=== PATIENT | male | born 1965 | race Caucasian/White ===

== ENCOUNTER 2017-01-21 08:38 | Day surgery (SDC) | payer BC ==
[2017-01-19 09:19] LABS: HEMATOCRIT 45.5 % (37.9-51.0); HEMOGLOBIN 14.5 g/dL (13.5-17.0); MEAN CORPUSCULAR HEMOGLOBIN 27.7 pg (27.0-33.4); MEAN CORPUSCULAR HGB CONC 31.8 g/dL (32.0-36.0); MEAN CORPUSCULAR VOLUME 87 fl (80-97); RED BLOOD COUNT 5.24 10^6/uL (4.35-5.55); WHITE BLOOD COUNT 11.3 10^3/uL (4.0-10.5)
--- NOTE | 2017-01-19 13:13 | EKG REPORT ---
SEVERITY:- NORMAL ECG - SINUS RHYTHM : Confirmed by: Jose Lynn MD 19-Jan-2017 13:12:50
[~2017-01-21 08:38] MED LIST: CEFAZOLIN 1 GM/D5W RTU 1 GM/50 ML RTUPB IV PRN; LIDOCAINE 0.5% INJ-PF (5 MG/ML) 50 ML SDV SUBCUT PRN; RINGERS SOLUTION,LACTATED 1,000 ML IV PRN
[2017-01-21] MEDS ORDERED: LIDOCAINE 1% INJ-PF (10 MG/ML) 30 ML SDV ONE (08:46)
[2017-01-21] MEDS ORDERED: LIDOCAINE 2% INJ-PF (100 MG/5 ML) SYRINGE ONE (10:13)
[2017-01-21] MEDS ORDERED: PROPOFOL INJ 200 MG/20 ML VIAL IV ONE (10:14)
[2017-01-21] MEDS ORDERED: FENTANYL CITRATE INJ/PF 100 MCG/2 ML AMPUL ONE (10:14)
[2017-01-21] MEDS ORDERED: MIDAZOLAM 2 MG/2 ML INJ ONE ×2 (10:14→10:59)
[2017-01-21] MEDS ORDERED: FAMOTIDINE INJ/PF 20 MG/2 ML SDV IV ONE ×2 (10:58→11:03)
[2017-01-21] MEDS ORDERED: METOCLOPRAMIDE HCL INJ/PF 10 MG/2 ML SDV ONE (10:59)
[2017-01-21] MEDS ORDERED: MIDAZOLAM 2 MG/2 ML INJ IV ONE (11:03)
[2017-01-21] MEDS ORDERED: METOCLOPRAMIDE HCL INJ/PF 10 MG/2 ML SDV IV ONE (11:03)
[2017-01-21] MEDS ORDERED: MICROFIBRILLAR COLLAGEN 1 GM PACK ONE (11:41)
--- NOTE | 2017-01-21 12:23 | Operative Report ---
Operative Report DATE OF SURGERY: 01/21/17 PREOPERATIVE DIAGNOSIS: Multiple scalp sebaceous cyst POSTOPERATIVE DIAGNOSIS: Same OPERATION: Excision of multiple sebaceous cysts, and closure of incision over drains SURGEON: SARTHAK MCCONNELL 1ST [employer]OOF COINS INSPECTOR: DOMINIC NEWMAN ANESTHESIA: GA TISSUE REMOVED OR ALTERED: sebastian cyst disposed COMPLICATIONS: none ESTIMATED BLOOD LOSS: 50 cc INTRAOPERATIVE FINDINGS: see below PROCEDURE: Patient was seen in the preop holding area where all 3 scalp cysts were marked. Patient was taken to the operating room where LMAC anesthesia was induced. The patient placed in the supine position arms tucked, scalp previously shaved, exposed, prepped and draped in sterile fashion. Surgical time out we will plan were also discussed There were 3 cysts and scalp. All 3 cysts were anesthetized with quarter percent Marcaine. We proceeded to remove the first cyst, small left frontal cyst by making incision of the scalp. The incision was one half correction 1.5 cm in length. The sebaceous cyst was excised in its deep. Wound closed with a single interrupted Ethilon suture. 2 cysts were in the right frontal and the right parietal region. The patient volarly were anesthetized with quarter percent Marcaine. The cyst require excision of an ellipse of scalp in order to close the operative incisions satisfactorily. Skin ellipses were removed from the apices of both cysts. Cyst contents evacuated which consisted of sebum. We then carefully excised the entire cyst lining and wall and since this sliding disposed of. Both cysts were then closed with running continuous 3-0 Ethilon suture, both wound cavities were drained with fragments of [place] trimmed to appropriate configuration. Drains were secured with separate 3-0 Ethilon suture. This afforded satisfactory opposition of skin flaps, with decompression of the cavities. Hemostasis was; wounds covered with Xeroform 4 x 4's and Kerlix dressing. Tolerated procedure well, however he room in stable condition. The physician tmd teacher assistant, Ms. Newman, provided assistance during this case by: Assisting with retracting tissue, instillation of local anesthesia and closure of skin incisions.
[2017-01-21] MEDS ORDERED: OXYCODONE-ACETAMINOPHEN 5-325 MG TABLET PO PRN (12:24)
--- NOTE | 2017-01-21 12:24 | PDOC DISCHARGE SUMMARY ---
Discharge Summary (SDC) - Discharge Final Diagnosis: Three scalp sebaceous cyst Date of Surgery: 01/21/17 Discharge Date: 01/21/17 Condition: Stable Treatment or Instructions: Remove head wrap and dressings below head wrap in 48 hours. Leave drain and suture intact. The drain is sutured in place. At that time you are able to shower with warm water/soap, pat dry, cover areas with bandaids. Do not use chemicals such as dyes on area. Do not directly brush areas. You may take Toradol 10 mg every six hours as needed for pain. Follow up appointment in 10-14 days at [facility]. [facility]: Prescriptions: Ketorolac Tromethamine [Toradol 10 mg Tablet] 10 mg PO Q6HP PRN #20 tablet PRN Reason: Discharge Diet: As Tolerated Report the Following to Your Physician Immediately: Fever over 101 Degrees, Redness, Swelling, Warmth, Drainage-Foul Smelling
[2017-01-21] MEDS ORDERED: ONDANSETRON HCL INJ/PF 4 MG/2 ML SDV IV PRN (12:25)
[2017-01-21] MEDS ORDERED: DEXMEDETOMIDINE INJ 80 MCG/20 ML VIAL IV ONE (12:29)
[2017-01-21] MEDS ORDERED: DIPHENHYDRAMINE HCL 50 MG/ML VIAL IV PRN (12:51)
[2017-01-21] MEDS ORDERED: PROMETHAZINE HCL INJ 25 MG/1 ML VIAL IV PRN ×2 (12:51)
[2017-01-21 15:45] VITALS: BP 131/88
--- NOTE | 2017-01-25 13:22 | OPERATIVE REPORT E ---
Operative Report NAME: PRETTY GARCIA : 1965 AGE: 51Y DATE OF SURGERY: 01/21/2017 ROOM: ADDENDUM: Three cysts were removed from the patient's scalp, the left frontal, right frontal, and right parietal. Left frontal cyst was 3 cm in diameter, right frontal was 5.5 cm in diameter, and right posterior was 5.5 cm in diameter. DICTATING PHYSICIAN: SARTHAK MCCONNELL M.D. [id number] PHY#: [id number] ID: [id number] JOB#: [id number] ACCT: [id number] cc:SARTHAK MCCONNELL M.D. >
== END 2017-01-21 15:10 | disposition home or self-care (01) ==
LOC: OROUT 08:38
PROVIDERS: ATTEND Surgery
PROC: 0HB0XZZ Excision of Scalp Skin, External Approach (ICD-10-PCS; principal; 2017-01-21 10:45)
DX: L72.3 Sebaceous cyst (principal); E66.9 Obesity, unspecified; R03.0 Elevated blood-pressure reading, without diagnosis of hypertension; Z79.82 Long term (current) use of aspirin; Z68.33 Body mass index [BMI] 33.0-33.9, adult
CPT/HCPCS: 93005; 36415; 85027; 93010; 11426; J2250; J0690; J3010; J3490 ×2; J2001; J2765; J2704; S0028; 300